=== PATIENT | male | born 1950 | race Two or more races ===

== ENCOUNTER 2019-06-25 17:01 | Inpatient (IN) | payer MEDICARE, MEDICAID ==
[~2019-06-25] VITALS: Ht 165.1 cm; Wt 67.4 kg
[2019-06-25 17:44] LABS: Basophils # (auto) 0 uL; Basophils % (auto) 0.4 % (0.0-2.0); Eosinophils # (auto) 0.1 uL; Eosinophils % (auto) 1.6 % (0.0-7.0); Hematocrit 44.4 % (41.0-53.0); Hemoglobin 15.2 g/dL (13.5-17.5); Lymphocytes # (auto) 1.8 uL; Lymphocytes % (auto) 29.9 % (10.0-50.0); Mean Corpuscular Hemoglobin 31.9 pg (28.0-32.0); Mean Corpuscular Hgb Conc. 34.3 g/dL (32.0-36.0); Monocytes # (auto) 0.4 uL; Monocytes % (auto) 6.7 % (0.0-12.0); Neutrophils # (auto) 3.7 uL; Neutrophils % (auto) 61.4 % (37.0-80.0); Nucleated Red Blood Cells % 0.1 %; Platelet Count (auto) 133 10^3/uL (140-450); Red Blood Cells 4.77 10^6/uL (4.5-5.90); Red Cell Distribution Width 12.4 % (11.8-14.3)
[2019-06-25 17:57] LABS: Albumin 3.7 g/dL (3.4-5.0); Anion Gap 9 (5-15); Blood Urea Nitrogen 17 mg/dL (7-18); Calcium 9.2 mg/dL (8.5-10.1); Carbon Dioxide 23 mmol/L (21-32); Chloride 103 mmol/L (98-107); Glucose 302 mg/dL (74-106); Potassium 3.9 mmol/L (3.5-5.1); Sodium 135 mmol/L (136-145)
[2019-06-25 18:02] LABS: Alanine Aminotransferase 54 U/L (16-61); Alkaline Phosphatase 60 U/L (45-117); Aspartate Aminotransferase 29 U/L (15-37); Bilirubin, Total 0.9 mg/dL (0.2-1.0); GFR African American 89 mL/min; GFR Non-African American 74 mL/min; Total Protein 7.8 g/dL (6.4-8.2)
[2019-06-26] VITALS (7 sets, daily range): BP systolic 97–180; BP diastolic 65–78
[2019-06-26] MEDS ORDERED: ONDANSETRON HCL 4 MG/2 ML VIAL IV ONE (01:45)
[2019-06-26] MEDS ORDERED: MORPHINE SULFATE 4 MG/ML SYR/VIAL IV ONE (01:45)
[2019-06-26 02:12] LABS: Urine Bacteria NONE SEEN /hpf (None Seen); Urine Blood Negative /uL (Negative); Urine Specific Gravity 1.032 (1.001-1.035); Urine WBC <1 /hpf (0 - 3)
[2019-06-26] MEDS ORDERED: LORazepam 0.5 MG TAB PO PRN (02:15)
[2019-06-26] MEDS ORDERED: DEXTROSE (50%) 50ML SYRG IV PRN (02:15)
[2019-06-26] MEDS ORDERED: MORPHINE SULFATE 4 MG/ML SYR/VIAL IV PRN (02:15)
[2019-06-26] MEDS ORDERED: DOCUSATE SOD 100 MG CAP PO PRN (02:15)
[2019-06-26] MEDS ORDERED: ONDANSETRON HCL 4 MG/2 ML VIAL IV PRN (02:15)
[2019-06-26] MEDS ORDERED: SODIUM CHLORIDE 0.9% 1,000 ML IV ONE (02:15)
[2019-06-26] MEDS ORDERED: METF-372 PO (03:57)
[2019-06-26] MEDS ORDERED: TAMS0.4C36 PO (03:57)
[2019-06-26] MEDS ORDERED: LISI40TA PO (03:57)
[2019-06-26] MEDS: ACCU-CHEK COMFORT CURVE STRIP VI SCH ×5 (04:00→20:00)
[2019-06-26] MEDS: InsuLIN REG 1unit/0.01ml Soln (100units/ml) SC SCH ×5 (04:00→20:00)
[2019-06-26] MEDS ORDERED: PNEUMOCOCCAL VACC POLYS 25 MCG/0.5 ML VIAL IM ONE (04:30)
[2019-06-26 07:53] LABS: Basophils # (auto) 0.1 uL; Basophils % (auto) 0.7 % (0.0-2.0); Eosinophils # (auto) 0 uL; Eosinophils % (auto) 0.2 % (0.0-7.0); Hematocrit 42.7 % (41.0-53.0); Hemoglobin 14.9 g/dL (13.5-17.5); Lymphocytes # (auto) 1.5 uL; Lymphocytes % (auto) 17.9 % (10.0-50.0); Mean Corpuscular Hemoglobin 32.5 pg (28.0-32.0); Mean Corpuscular Hgb Conc. 34.9 g/dL (32.0-36.0); Mean Corpuscular Volume 93.1 fL (80.0-100.0); Monocytes # (auto) 0.6 uL; Monocytes % (auto) 6.6 % (0.0-12.0); Neutrophils # (auto) 6.2 uL; Neutrophils % (auto) 74.6 % (37.0-80.0); Platelet Count (auto) 140 10^3/uL (140-450); Red Blood Cells 4.59 10^6/uL (4.5-5.90); Red Cell Distribution Width 12.3 % (11.8-14.3); White Blood Cell 8.3 10^3/uL (4.4-10.8)
[2019-06-26 08:12] LABS: Calcium 8.6 mg/dL (8.5-10.1); Potassium 3.9 mmol/L (3.5-5.1)
[2019-06-26 08:16] LABS: BUN/Creatinine Ratio 16.8
[2019-06-26] MEDS ORDERED: LISINOPRIL 20 MG TAB PO ONE (13:15)
[2019-06-26] MEDS: TAMSULOSIN HYDROCHLORIDE 0.4 MG CAP PO SCH (17:41)
[2019-06-26] MEDS: cloNIDine HCL 0.1 MG TAB PO PRN (17:41)
[2019-06-26] MEDS: ATORVASTATIN 20 MG TAB PO SCH (21:50)
[2019-06-27] MEDS: ACCU-CHEK COMFORT CURVE STRIP VI SCH ×6 (00:07→20:15)
[2019-06-27] MEDS: InsuLIN REG 1unit/0.01ml Soln (100units/ml) SC SCH ×6 (00:09→20:15)
[2019-06-27 05:00] VITALS: BP 155/80
[2019-06-27 09:00] VITALS: BP 163/70
[2019-06-27] MEDS: ACETAMINOPHEN 325 MG TAB PO PRN (09:24)
[2019-06-27] MEDS: ASPirin-EC 81 mg tab PO SCH (09:24)
[2019-06-27] MEDS: LISINOPRIL 20 MG TAB PO SCH (09:25)
[2019-06-27 13:00] VITALS: BP 140/61
[2019-06-27] MEDS: HYDROcodone-ACET 5/325MG TAB PO PRN (15:59)
[2019-06-27 17:00] VITALS: BP 175/72
[2019-06-27] MEDS: TAMSULOSIN HYDROCHLORIDE 0.4 MG CAP PO SCH (17:58)
[2019-06-27] MEDS: cloNIDine HCL 0.1 MG TAB PO PRN (17:58)
[2019-06-27 18:50] VITALS: BP 163/72
[2019-06-27] MEDS: ATORVASTATIN 20 MG TAB PO SCH (22:31)
[2019-06-28] VITALS (7 sets, daily range): BP systolic 135–182; BP diastolic 63–78
[2019-06-28] MEDS: ACCU-CHEK COMFORT CURVE STRIP VI SCH ×6 (00:23→20:13)
[2019-06-28] MEDS: InsuLIN REG 1unit/0.01ml Soln (100units/ml) SC SCH ×6 (00:23→20:13)
[2019-06-28] MEDS: ACETAMINOPHEN 325 MG TAB PO PRN (00:37)
[2019-06-28] MEDS: ASPirin-EC 81 mg tab PO SCH (10:42)
[2019-06-28] MEDS: LISINOPRIL 20 MG TAB PO SCH (10:44)
[2019-06-28] MEDS: cloNIDine HCL 0.1 MG TAB PO PRN ×2 (15:53→21:41)
[2019-06-28] MEDS: HYDROcodone-ACET 5/325MG TAB PO PRN (15:54)
[2019-06-28] MEDS: TAMSULOSIN HYDROCHLORIDE 0.4 MG CAP PO SCH (18:48)
[2019-06-28] MEDS: ATORVASTATIN 20 MG TAB PO SCH (21:40)
[2019-06-29] MEDS: ACCU-CHEK COMFORT CURVE STRIP VI SCH ×4 (00:25→12:00)
[2019-06-29] MEDS: InsuLIN REG 1unit/0.01ml Soln (100units/ml) SC SCH ×4 (00:26→11:58)
[2019-06-29 05:00] VITALS: BP 155/72
[2019-06-29 09:00] VITALS: BP 155/73
[2019-06-29] MEDS: ASPirin-EC 81 mg tab PO SCH (10:13)
[2019-06-29] MEDS: LISINOPRIL 20 MG TAB PO SCH (10:14)
[2019-06-29] MEDS: HYDROcodone-ACET 5/325MG TAB PO PRN (11:57)
[2019-06-29] MEDS: cloNIDine HCL 0.1 MG TAB PO PRN (11:58)
[2019-06-29 12:56] VITALS: BP 182/73
[2019-06-29 13:00] VITALS: BP 189/79
== END 2019-06-29 14:15 | disposition home health service (06) | DRG 65 ==
LOC: ER 17:01 → TELE-WESTW 17:02
PROVIDERS: ADMIT Hospitalist; ATTEND Family Medicine
DX: I63.531 Cerebral infarction due to unspecified occlusion or stenosis of right posterior cerebral artery (principal); G81.94 Hemiplegia, unspecified affecting left nondominant side; E11.65 Type 2 diabetes mellitus with hyperglycemia; I10 Essential (primary) hypertension; F17.200 Nicotine dependence, unspecified, uncomplicated; E11.21 Type 2 diabetes mellitus with diabetic nephropathy; E78.00 Pure hypercholesterolemia, unspecified; N40.0 Benign prostatic hyperplasia without lower urinary tract symptoms; E11.40 Type 2 diabetes mellitus with diabetic neuropathy, unspecified; H53.462 Homonymous bilateral field defects, left side; G47.10 Hypersomnia, unspecified; Z90.49 Acquired absence of other specified parts of digestive tract; Z79.84 Long term (current) use of oral hypoglycemic drugs; Z79.899 Other long term (current) drug therapy; Z82.49 Family history of ischemic heart disease and other diseases of the circulatory system; Z83.3 Family history of diabetes mellitus; Z86.73 Personal history of transient ischemic attack (TIA), and cerebral infarction without residual deficits
CPT/HCPCS: 36415; 70450; 70551; 80048; 80053; 80061; 81001; 82962; 83036; 84484; 85025; 93005; 93306; 93886; 94660; 96361; 96374; 96375; 97110; 97163; 97530; G0378; J1815; J2405

== ENCOUNTER → 2023-06-04 | Outpatient (CLI) | payer OTHER, MEDICAID ==
[~2023-06-04] MED LIST: LISI40TA16 PO; METF-372 PO; TAMS0.4C36 PO
== END | disposition home or self-care (01) ==
LOC: XYW 08:23
PROVIDERS: ATTEND Internal Medicine
DX: I08.0 Rheumatic disorders of both mitral and aortic valves (principal); I11.0 Hypertensive heart disease with heart failure
CPT/HCPCS: 93306

== ENCOUNTER → 2023-08-24 | Outpatient (CLI) | payer OTHER, MEDICAID ==
[~2023-08-24] VITALS: Ht 162.6 cm; Wt 72.6 kg
[2023-08-24] MEDS: ADENOSINE 61 MG in GIVE UN-DILUTED 0 ML IV STA (09:23)
== END | disposition home or self-care (01) ==
LOC: XYW 07:53
PROVIDERS: ATTEND Internal Medicine
DX: I13.0 Hypertensive heart and chronic kidney disease with heart failure and stage 1 through stage 4 chronic kidney disease, or unspecified chronic kidney disease (principal); E11.22 Type 2 diabetes mellitus with diabetic chronic kidney disease; I50.32 Chronic diastolic (congestive) heart failure; N18.2 Chronic kidney disease, stage 2 (mild); E78.5 Hyperlipidemia, unspecified; Z86.73 Personal history of transient ischemic attack (TIA), and cerebral infarction without residual deficits
CPT/HCPCS: 78452; 93017; A9500; J0153

== ENCOUNTER 2025-02-09 11:11 | Inpatient (IN) | payer MEDICARE, MEDICAID ==
[~2025-02-09] VITALS: Ht 154.9 cm; Wt 78.0 kg
[~2025-02-09 11:11] MED LIST changes: -TAMS0.4C36 PO; +TAMS0.4C39 PO
--- NOTE | 2025-02-09 12:20 | ED.PDOC ---
HPI Comments 74 y/o M, with PMHx of CAD and HTN presents to the ED for CC of chest pain. Patient states, he has been experiencing left sided chest pain that radiates to his left arm x1day. Patient has prior, left-deficit d/t past CVA; endorses pain to worsen with extension of left arm. patient denies palpations, shortness of breath, nausea, vomiting, headache, or dizziness. No other symptoms or modifying factors are present at this time. Chief Complaint: Chest Pain Time Seen by MD: 12:30 Reviewed Notes: Nurses Notes, Medications, Allergies Allergies: Coded Allergies: NO KNOWN ALLERGIES (Unverified , 06/25/19) Home Meds Reported Medications Metformin Hydrochloride (Metformin Hcl) 1,000 Mg Tab, 1000 MG PO BID, TAB 06/26/19 Lisinopril (Lisinopril) 40 Mg Tab, 40 MG PO DAILY, TAB 06/26/19 Tamsulosin Hcl (Tamsulosin Hcl) 0.4 Mg Cap, 0.4 MG PO HS, CAP 06/26/19 Information Source: Patient Mode of Arrival: Wheelchair Severity: Moderate Timing: Days Duration: Since onset Prehospital treatment: None Location: Chest (L) Radiation: Arm (L) Onset: At Rest Cardiac Risk Factors: HTN PE Risk Factors: None History of: None Modifying Factors: Nothing Associated Signs and Symptoms: None Past Medical History PAST MEDICAL HISTORY: CVA, HTN Surgical History: Denies all surgeries Family History Family History: Reviewed,noncontributory to illness Social History Smoker: Non-Smoker Alcohol: Denies ETOH Use Drugs: Denies Drug Use Lives In: Home Constitutional: denies: chills, diaphoresis, fatigue, fever, malaise, sweats, weakness, others EENTM: denies: blurred vision, double vision, ear bleeding, ear discharge, ear drainage, ear pain, ear ringing, eye pain, eye redness, hearing loss, mouth pain, mouth swelling, nasal discharge, nose bleeding, nose congestion, nose pain, photophobia, tearing, throat pain, throat swelling, voice changes, others Respiratory: denies: cough, hemoptysis, orthopnea, SOB at rest, shortness of breath, SOB with excertion, stridor, wheezing, others Cardiovascular: reports: chest pain; denies: dizzy spells, diaphoresis, Dyspnea on exertion, edema, irregular heart beat, left arm pain, lightheadedness, palpitations, PND, syncope, others Gastrointestinal: denies: abdomen distended, abdominal pain, blood streaked bowels, constipated, diarrhea, dysphagia, difficulty swallowing, hematemesis, melena, nausea, poor appetite, poor fluid intake, rectal bleeding, rectal pain, vomiting, others Genitourinary: denies: burning, dysuria, flank pain, frequency, hematuria, incontinence, penile discharge, penile sore, pain, testicle pain, testicle swelling, urgency, others Neurological: denies: dizziness, fainting, headache, left sided numbness, left sided weakness, numbness, paresthesia, pre-existing deficit, right sided numb ness, right sided weakness, seizure, speech problems, tingling, tremors, weakness, others Musculoskeletal: denies: back pain, gout, joint pain, joint swelling, muscle pain, muscle stiffness, neck pain, others Integumetry: denies: bruises, change in color, change in hair/nails, dryness, laceration, lesions, lumps, rash, wounds, others Allergic/Immunocompromised: denies: Difficulty Healing, Frequent Infections, Hives, Itching, others Hematologic/Lymphatic: denies: anemia, blood clots, easy bleeding, easy bruising, swollen glands, others Endocrine: denies: excessive hunger, excessive sweating, excessive thirst, excessive urination, flushing, intolerance to cold, intolerance to heat, unexplained weight gain, unexplained weight loss, others Psychiatric: denies: anxiety, bipolar disorder, depression, hopeless, panic disorder, schizophrenia, sleepless, suicidal, others All Other Systems: Reviewed and Negative Physical Exam General Appearance: No Apparent Distress, Normal HEENT: Normal ENT Inspection, Pharynx Normal, TMs Normal Neck: Full Range of Motion, Non-Tender, Normal, Normal Inspection Respiratory: Chest Non-Tender, Lungs Clear, No Accessory Muscle Use, No Respiratory Distress, Normal Breath Sounds Cardiovascular: No Edema, No JVD, No Murmur, No Gallop, Normal Peripheral Pulses, Regular Rate/Rhythm Breast Exam: Deferred Gastrointestinal: No Organomegaly, Non Tender, No Pulsatile Mass, Normal Bowel Sounds, Soft Genitalia: Deferred Pelvic: Deferred Rectal: Deferred Extremities: No calf tenderness, Normal capillary refill, Normal inspection, Normal range of motion, Non-tender, No pedal edema Musculoskeletal : Location: Left Extremity Location: Arm Apperance: Other (contracture) Neurologic: Alert, dock pumper II-XII nml as Tested, No Motor Deficits, Normal Affect, Normal Mood, No Sensory Deficits Cerebellar Function: Normal Reflexes: Normal Skin: Dry, Normal Color, Warm Lymphatic: No Adenopathy Was a procedure done? Was a procedure done?: No CP Differential Dx Differential Diagnosis: Angina, Anxiety / Panic Attack Differential Diagnosis: HTN Essential, HTN Accelerated Differential Diagnosis: Chest Wall Pain, Costochondritis, Esophageal reflux/spasm, Gastritis X-Ray, Labs, Meds, VS Vital Signs Date Time Temp Pulse Resp B/P (MAP) Pulse Ox O2 Delivery O2 Flow Rate FiO2 02/09/25 12:35 78 02/09/25 11:20 86 02/09/25 11:12 98.2 87 18 140/62 95 98.2 Lab Test 02/09/25 15:13 02/09/25 13:07 02/09/25 11:29 Range/Units Troponin I High Sensitivity Pending 11 12 </=54 ng/L White Blood Count 5.2 4.4-10.8 10^3/uL Red Blood Count 4.64 4.5-5.90 10^6/uL Hemoglobin 15.1 13.5-17.5 g/dL Hematocrit 44.1 41.0-53.0 % Mean Corpuscular Volume 94.9 80.0-100.0 fL Mean Corpuscular Hemoglobin 32.4 H 28.0-32.0 pg Mean Corpuscular Hemoglobin Concent 34.1 32.0-36.0 g/dL Red Cell Distribution Width 13.1 11.8-14.3 % Platelet Count 118 L 140-450 10^3/uL Mean Platelet Volume 10.0 6.9-10.8 fL Neutrophils (%) (Auto) 64.0 37.0-80.0 % Lymphocytes (%) (Auto) 26.0 10.0-50.0 % Monocytes (%) (Auto) 8.1 0.0-12.0 % Eosinophils (%) (Auto) 1.4 0.0-7.0 % Basophils (%) (Auto) 0.5 0.0-2.0 % Neutrophils # (Auto) 3.3 1.6-8.6 10 ^3/uL Lymphocytes # (Auto) 1.4 0.4-5.4 10 ^3/uL Monocytes # (Auto) 0.4 0-1.3 10 ^3/uL Eosinophils # (Auto) 0.1 0-0.8 10 ^3/uL Basophils # (Auto) 0 0-0.2 10 ^3/uL Nucleated Red Blood Cells 0.1 % Sodium Level 144 136-145 mmol/L Potassium Level 4.1 3.5-5.1 mmol/L Chloride Level 105 98-107 mmol/L Carbon Dioxide Level 27 20-31 mmol/L Anion Gap 12 5-15 Blood Urea Nitrogen 26 H 9-23 mg/dL Creatinine 1.49 H 0.700-1.30 mg/dL Glomerular Filtration Rate Calc 49 >90 mL/min BUN/Creatinine Ratio 17.4 10.0-20.0 Serum Glucose 146 H 74-106 mg/dL Calcium Level 9.6 8.7-10.4 mg/dL [place] [id number] Ph: [phone] DIAGNOSTIC IMAGING Diagnostic Imaging Report : [id number] Signed PATIENT: ANGELA CARBAJAL ACCT: [id number] UNIT: [id number] : 1950 LOC: ER ROOM / BED: / AGE / SEX: 74 / M ADM STATUS: REG ER SERVICE 1238 ORDERING PHYSICIAN: IMAN FOTNAINE MD PROCEDURE(s): CXRP - CHEST PORTABLE REASON: sob ORDER NUMBER(s): [id number], ACCESSION NUMBER(s): [id number] CHEST RADIOGRAPH Indication: sob Technique: Single frontal view of the chest was obtained Comparison: None FINDINGS: Lines and Tubes: None Lungs: Prominent bibasilar bronchovascular markings. Pleura: No effusion. No pneumothorax. Cardiomediastinal contours: Unremarkable Bones: No acute osseous abnormality. IMPRESSION: 1. Prominent bibasilar bronchovascular markings. 2. Findings may represent infiltrates areas of atelectasis chronic disease ATED BY: CARLTON PARMAR Jr. DO DICTATED DATE/TIME: 02/09/25 1301 SIGNED BY: CARLTON PARMAR Jr., DO SIGNED DATE/TIME: 02/09/25 1301 CC: Time of 1ST Reevaluation: 13:00 Reevaluation 1ST: Unchanged Patient Education/Counseling: Diagnosis, Treatment Family Education/Counseling: No Family Present SEPSIS Sepsis Screen Date sepsis recognized/suspect: Feb 09, 2025 Time Sepsis recognized/suspect: 1114 Recent Procedure: No On Antibiotic Therapy: No Respiratory Rate >20: No Heart Rate >90: No Temp<36 C (96.8 F) or >38.3 C: No SBP <90 or MAP <65 mmHG: No New Acute Mental Status Change: No Is the patient on CPAP, BIPAP,: No Physician Orders Electrocardigram (02/09/25 11:15) Troponin-I Hs (02/09/25 14:15) Electrocardigram (02/09/25 12:15) Electrocardigram (02/09/25 14:15) Chest Portable (02/09/25 12:38) Lactic Acid W/ Reflex Order (02/09/25 15:43) Blood Culture (02/09/25 15:43) NS (02/09/25 15:45) Cefepime 2gm Extended Infusion (02/09/25 15:45) Vancomycin (02/09/25 15:45) Vital Signs Date Time Temp Pulse Resp B/P (MAP) Pulse Ox O2 Delivery O2 Flow Rate FiO2 02/09/25 12:35 78 02/09/25 11:20 86 02/09/25 11:12 98.2 87 18 140/62 95 98.2 Laboratory Tests Test 02/09/25 11:29 White Blood Count 5.2 10^3/uL (4.4-10.8) Departure 1 Departure Time of Disposition: 15:44 (Patient is not septicPatient presented with chest pain that was concerning for possible STEMI, ACS, PE, Pneumonia, Muscle Strain, COPD, Dissection. Data: 1. I ordered and reviewed the result of at least 3 labs including a CBC, BMP, and Troponin. 2. I independently interpreted the following tests: EKG which shows sinus rhythm a and Chest X-ray which shows possible pneumonia _.Risk:This patient has a high risk of morbidity due to further diagnostic testing or treatment and may suffer from an acute cardiac or res piratory disorder. Workup reveals pneumonia and patient should be admitted for further workup and possible expert consultation. ) Impression: Primary Impression: Pneumonia Additional Impression: Acute chest pain Disposition: 09 ADMITTED INPATIENT Admit to: Med Surg Condition: Serious Critical Care Note Critical Care Time?: Yes Critical care comment: Acute Chest Pain Authorized and Performed by: Iman Fontaine MD Total critical care time: Approximately 38 minutes Due to a high probability of clinically significant, life threatening deterioration, the patient required my highest level of preparedness to intervene emergently and I personally spent this critical care time directly and personally managing the patient. This critical care time included obtaining a history; examining the patient; pulse oximetry; ordering and review of studies; arranging urgent treatment with development of a management plan; evaluation of patient's response to treatment; frequent reassessment; and, discussions with other providers. This critical care time was performed to assess and manage the high probability of imminent, life-threatening deterioration that could result in multi-organ failure. It was exclusive of separately billable procedures and treating other patients and teaching time. Please see my other sections and the rest of the note for further information on patient assessment and treatment. Stability Stability form required: No Heart Score Heart Score: Heart Score Response (Comments) Value History N/A 0 EKG N/A 0 Age N/A 0 Risk Factors N/A 0 Troponin N/A 0 Total 0 I personally scribed for IMAN FONTAINE MD ([email or web address]) on 02/09/25 at 12:20. Electronically submitted by Hina Lara ([email or web address]). I personally scribed for IMAN FONTAINE MD ([email or web address]) on 02/09/25 at 12:54. Electronically submitted by Hina Lara ([email or web address]). I personally scribed for IMAN FONTAINE MD ([email or web address]) on 02/09/25 at 13:44. Electronically submitted by Hina Lara ([email or web address]). IMAN FONTAINE MD Feb 09, 2025 12:20
[2025-02-09 12:57] LABS: Hematocrit 44.1 % (41.0-53.0); Hemoglobin 15.1 g/dL (13.5-17.5); Mean Corpuscular Hemoglobin 32.4 pg (28.0-32.0); Mean Corpuscular Volume 94.9 fL (80.0-100.0); Nucleated Red Blood Cells % 0.1 %
--- NOTE | 2025-02-09 13:04 | DVH ---
CHEST RADIOGRAPH Indication: sob Technique: Single frontal view of the chest was obtained Comparison: None FINDINGS: Lines and Tubes: None Lungs: Prominent bibasilar bronchovascular markings. Pleura: No effusion. No pneumothorax. Cardiomediastinal contours: Unremarkable Bones: No acute osseous abnormality. IMPRESSION: 1. Prominent bibasilar bronchovascular markings. 2. Findings may represent infiltrates areas of atelectasis chronic disease
[2025-02-09 13:54] LABS: Chloride 105 mmol/L (98-107); Potassium 4.1 mmol/L (3.5-5.1); Sodium 144 mmol/L (136-145)
[2025-02-09 13:55] LABS: Anion Gap 12 (5-15); Carbon Dioxide 27 mmol/L (20-31)
[2025-02-09 13:56] LABS: Calcium 9.6 mg/dL (8.7-10.4)
[2025-02-09 14:00] LABS: BUN/Creatinine Ratio 17.4 (10.0-20.0)
[2025-02-09 14:01] LABS: Blood Urea Nitrogen 26 mg/dL (9-23); Glucose 146 mg/dL (74-106)
[2025-02-09] MEDS ORDERED: DEXTROSE (50%) 50ML SYRG IV PRN (16:45)
[2025-02-09] MEDS ORDERED: ALBUTEROL SULF 2.5 MG/0.5ML(0.5%) NEB SOLN NEB PRN (16:45)
[2025-02-09] MEDS ORDERED: ACETAMINOPHEN 325 MG TAB PO PRN (16:45)
[2025-02-09] MEDS ORDERED: NITROGLYCERIN 0.4 MG SL TAB SL PRN (16:45)
[2025-02-09] MEDS ORDERED: ONDANSETRON HCL 4 MG/2 ML VIAL IV PRN (16:45)
[2025-02-09] MEDS: CEFEPIME 2GM/50ML NS 50 ML IV ONE (16:46)
[2025-02-09] MEDS: SODIUM CHLORIDE 0.9% 1,000 ML IV ONE (16:46)
[2025-02-09] MEDS: VANCOMYCIN 1GM/250ML KIT 250 ML IV ONE (16:46)
[2025-02-09 16:57] VITALS: BP 134/56; PULSE 73; RESP 18; TEMP 98; O2SAT 96
[2025-02-09] MEDS ORDERED: MORPHINE SULFATE 4 MG/ML SYR/VIAL IV PRN (17:45)
--- NOTE | 2025-02-09 18:06 | ECG ---
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
--- NOTE | 2025-02-09 18:07 | ECG ---
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
--- NOTE | 2025-02-09 18:50 | DVHHP2 ---
History of Present Illness Reason for Visit: Chest pain History of Present Illness 74-year-old male presents for evaluation of chest pain. Patient endorses a one day history of left-sided pressure-like chest pain with associated shortness for breath. He states the pain is nonradiating. Denies nausea or vomiting. No fever or chills. No cough Past Medical History Diabetes mellitus, hypertension, CVA Past Surgical History Denies Family History Noncontributory Smoke: No ALCOHOL: none Drugs: None Lives: with Family Review of Systems Review of Systems Review of systems are currently negative otherwise addressed in HPI. Allergies: Coded Allergies: NO KNOWN ALLERGIES (Unverified , 06/25/19) Medications Current Medications Medications Dose Ordered Sig/Elizabeth Route Start Time Stop Time Status Last Admin Dose Admin Azithromycin 250 ml @ 125 mls/hr DAILY IV 02/10/25 10:00 Albuterol 2.5 mg Q6HPRN PRN NEB 02/09/25 16:45 Lisinopril 40 mg DAILY PO 02/10/25 10:00 Atorvastatin Calcium 20 mg HS PO 02/09/25 22:00 Empaglifozin 25 mg DAILY PO 02/10/25 10:00 Tamsulosin HCl 0.4 mg QPM PO 02/09/25 18:00 Furosemide 20 mg DAILY PO 02/10/25 10:00 Gabapentin 300 mg DAILY PO 02/10/25 10:00 Diagnostic Test (Pha) 1 strip ACHS 02/09/25 17:00 Insulin Human Regular ACHS SC 02/09/25 17:00 Dextrose 50 ml UD PRN IV 02/09/25 16:45 Ondansetron HCl 4 mg Q4HP PRN IV 02/09/25 16:45 Acetaminophen 650 mg Q6HP PRN PO 02/09/25 16:45 Nitroglycerin 0.4 mg Q5MINP PRN SL 02/09/25 16:45 Morphine Sulfate 2 mg Q30M PRN IV 02/09/25 17:45 Exam Vital Signs Vital Signs Date Time Temp Pulse Resp B/P (MAP) Pulse Ox O2 Delivery O2 Flow Rate FiO2 02/09/25 16:57 98.0 73 18 134/56 96 0.0 21 98.0 Exam Gen: 74-year-old male in mild distress Skin: Warm, dry, normal color and texture, no rash. HEENT: Normocephalic atraumatic, mucous membranes moist and pink. Neck: Cervical and supraclavicular nodes normal without enlargement, trachea is midline, thyroid gland is normal without masses. Pulmonary: Clear to auscultation and percussion bilaterally. Cardiac: Regular rate and rhythm. No murmur Abdomen: Soft, nontender, nondistended, bowel sounds present all 4 quadrants, no guarding, no rigidity, no organomegaly. Extremities: No cyanosis, clubbing, no edema Neuro: Cranial nerves II through XII grossly intact, normal affect and speech, left-sided deficits from previous CVA Labs/Xrays ORDERING PHYSICIAN: IMAN ROMAN MD PROCEDURE(s): CXRP - CHEST PORTABLE REASON: sob ORDER NUMBER(s): [id number], ACCESSION NUMBER(s): [id number] CHEST RADIOGRAPH Indication: sob Technique: Single frontal view of the chest was obtained Comparison: None FINDINGS: Lines and Tubes: None Lungs: Prominent bibasilar bronchovascular markings. Pleura: No effusion. No pneumothorax. Cardiomediastinal contours: Unremarkable Bones: No acute osseous abnormality. IMPRESSION: 1. Prominent bibasilar bronchovascular markings. 2. Findings may represent infiltrates areas of atelectasis chronic disease ATED BY: CARLTON SHIN Jr., DO DICTATED DATE/TIME: 02/09/25 1301 Labs Test 02/09/25 16:14 02/09/25 15:13 02/09/25 11:29 Range/Units Lactic Acid Level 0.7 0.4-2.0 mmol/L Troponin I High Sensitivity 11 </=54 ng/L White Blood Count 5.2 4.4-10.8 10^3/uL Red Blood Count 4.64 4.5-5.90 10^6/uL Hemoglobin 15.1 13.5-17.5 g/dL Hematocrit 44.1 41.0-53.0 % Mean Corpuscular Volume 94.9 80.0-100.0 fL Mean Corpuscular Hemoglobin 32.4 H 28.0-32.0 pg Mean Corpuscular Hemoglobin Concent 34.1 32.0-36.0 g/dL Red Cell Distribution Width 13.1 11.8-14.3 % Platelet Count 118 L 140-450 10^3/uL Mean Platelet Volume 10.0 6.9-10.8 fL Neutrophils (%) (Auto) 64.0 37.0-80.0 % Lymphocytes (%) (Auto) 26.0 10.0-50.0 % Monocytes (%) (Auto) 8.1 0.0-12.0 % Eosinophils (%) (Auto) 1.4 0.0-7.0 % Basophils (%) (Auto) 0.5 0.0-2.0 % Neutrophils # (Auto) 3.3 1.6-8.6 10 ^3/uL Lymphocytes # (Auto) 1.4 0.4-5.4 10 ^3/uL Monocytes # (Auto) 0.4 0-1.3 10 ^3/uL Eosinophils # (Auto) 0.1 0-0.8 10 ^3/uL Basophils # (Auto) 0 0-0.2 10 ^3/uL Nucleated Red Blood Cells 0.1 % Sodium Level 144 136-145 mmol/L Potassium Level 4.1 3.5-5.1 mmol/L Chloride Level 105 98-107 mmol/L Carbon Dioxide Level 27 20-31 mmol/L Anion Gap 12 5-15 Blood Urea Nitrogen 26 H 9-23 mg/dL Creatinine 1.49 H 0.700-1.30 mg/dL Glomerular Filtration Rate Calc 49 >90 mL/min BUN/Creatinine Ratio 17.4 10.0-20.0 Serum Glucose 146 H 74-106 mg/dL Calcium Level 9.6 8.7-10.4 mg/dL SEPSIS Sepsis Screen Date sepsis recognized/suspect: Feb 09, 2025 Time Sepsis recognized/suspect: 1114 Recent Procedure: No On Antibiotic Therapy: No Respiratory Rate >20: No Heart Rate >90: No Temp<36 C (96.8 F) or >38.3 C: No SBP <90 or MAP <65 mmHG: No New Acute Mental Status Change: No Is the patient on CPAP, BIPAP,: No Physician Orders Electrocardigram (02/09/25 14:15) Chest Portable (02/09/25 12:38) Blood Culture (02/09/25 15:43) Cefepime 2gm/50ml Ns (Maxipime 2gm/50ml) (02/09/25 15:45) Azithromycin 500mg/ 250ml (Zithromax 50 (02/10/25 10:00) Albuterol Medneb (Ventolin Medneb) (02/09/25 16:45) Lisinopril Tablet (Zestril Tablet) (02/10/25 10:00) Atorvastatin (Lipitor) (02/09/25 22:00) Empagliflozin (Jardiance) (02/10/25 10:00) Tamsulosin Hydrochloride (Flomax) (02/09/25 18:00) Furosemide Tablet (Lasix Tablet) (02/10/25 10:00) Gabapentin Capsule (Neurontin Capsule) (02/10/25 10:00) Basic Metabolic Panel (02/10/25 04:00) Glucose Blood (Accu-Chek Comfort Curve T (02/09/25 17:00) Insulin R (Human) (Insulin R) (02/09/25 17:00) Dextrose 50% Syringe (02/09/25 16:45) Admit (02/09/25 16:42) Ondansetron Hcl (Zofran) (02/09/25 16:45) Complete Blood Count (02/10/25 04:00) Cardiac Diet-2gna,Lofat,Lochol (02/09/25 Dinner) Echo 2d Mode Cardiac Dop (02/09/25 16:42) Condition: Fair (02/09/25 16:42) Acetaminophen Tablet (Tylenol Tablet) (02/09/25 16:45) Bedrest With Bathroom Privileg (02/09/25 16:42) Nitroglycerin Sublingual (Ntrostat Subli (02/09/25 16:45) Stat Ekg For Chest Pain (02/09/25 16:42) Notify Md Of Changes From Base (02/09/25 16:42) 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 (02/09/25 16:42) Emergency Dysrhythmia Protocol (02/09/25 16:42) Rhythm Strips Once Every Shift (02/09/25 16:42) Oxygen By Nasal Cannula (02/09/25 16:42) Morphine Sulfate Injection (02/09/25 17:45) Vital Signs Date Time Temp Pulse Resp B/P (MAP) Pulse Ox O2 Delivery O2 Flow Rate FiO2 02/09/25 16:57 98.0 73 18 134/56 96 0.0 21 98.0 02/09/25 16:29 98.0 73 18 134/56 (82) 96 98.0 02/09/25 12:35 78 02/09/25 11:20 86 02/09/25 11:12 98.2 87 18 140/62 95 98.2 Laboratory Tests Test 02/09/25 11:29 02/09/25 16:14 White Blood Count 5.2 10^3/uL (4.4-10.8) Lactic Acid Level 0.7 mmol/L (0.4-2.0) Medications Medications Dose Ordered Sig/Elizabeth Route Start Time Stop Time Status Last Admin Dose Admin Cefepime HCl 50 ml @ 12.5 mls/hr ONCE ONCE IV 02/09/25 15:45 02/09/25 19:44 02/09/25 16:46 12.5 MLS/HR Sodium Chloride 1,000 ml @ 1,000 mls/hr Q1H ONCE IV 02/09/25 15:45 02/09/25 16:44 DC 02/09/25 16:46 1,000 MLS/HR Vancomycin HCl 250 ml @ 250 mls/hr ONCE ONCE IV 02/09/25 15:45 02/09/25 16:44 DC 02/09/25 16:46 250 MLS/HR Assessment/Plan Assessment/Plan Assessment Chest pain Questionable pneumonia Diabetes mellitus Chronic kidney disease CVA with left-sided deficits Plan Admit the patient to telemetry to the hospitalist Echocardiogram pending Azithromycin Med nebs Resume home medications Continue treatment per orders. Plan discussed with: Patient My Orders Orders - TRAMAINE ROWLEY AGACNP Procedure Category Date Status Time Azithromycin 500mg/ PHA 02/10/25 In Process 250ml (Zithromax 50 10:00 Albuterol Medneb PHA 02/09/25 In Process (Ventolin Medneb) 16:45 Lisinopril Tablet PHA 02/10/25 In Process (Zestril Tablet) 10:00 Atorvastatin (Lipitor) PHA 02/09/25 In Process 22:00 Empagliflozin PHA 02/10/25 In Process (Jardiance) 10:00 Tamsulosin PHA 02/09/25 In Process Hydrochloride (Flomax) 18:00 Furosemide Tablet PHA 02/10/25 In Process (Lasix Tablet) 10:00 Gabapentin Capsule PHA 02/10/25 In Process (Neurontin Capsule) 10:00 Basic Metabolic Panel LAB 02/10/25 Verified 04:00 Glucose Blood PHA 02/09/25 In Process (Accu-Chek Comfort 17:00 Insulin R (Human) PHA 02/09/25 In Process (Insulin R) 17:00 Dextrose 50% Syringe PHA 02/09/25 In Process 16:45 Admit ADMIT 02/09/25 Transmitted 16:42 Ondansetron Hcl PHA 02/09/25 In Process (Zofran) 16:45 Complete Blood Count LAB 02/10/25 Verified 04:00 Cardiac DIET 02/09/25 Transmitted Diet-2gna,Lofat,Lochol Dinner Echo 2d Mode Cardiac US 02/09/25 Logged DOP 16:42 Condition: Fair [facility] [place] 02/09/25 In Process 16:42 Acetaminophen Tablet [facility] 02/09/25 In Process (Tylenol Tablet) 16:45 Bedrest With Bathroom [facility] [place] 02/09/25 In Process Privileg 16:42 Nitroglycerin [facility] 02/09/25 In Process Sublingual (Ntrostat 16:45 Stat Ekg For Chest [facility] [place] 02/09/25 In Process Pain 16:42 Notify Md Of Changes [facility] [place] 02/09/25 In Process From Base 16:42 Drive [employer]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
[2025-02-09 19:59] VITALS: PULSE 74; RESP 18; O2SAT 95
[2025-02-09 20:00] VITALS: PULSE 74; PULSE 76; RESP 18; O2SAT 95
[2025-02-09 20:45] VITALS: BP 157/80; PULSE 74; RESP 18; TEMP 98; O2SAT 95
[2025-02-09 21:00] VITALS: BP 151/80; PULSE 75; RESP 18; TEMP 97.5; O2SAT 94
[2025-02-09] MEDS ORDERED: GABA-1250 PO (21:29)
[2025-02-09] MEDS ORDERED: GLIM2TAB33 PO (21:29)
[2025-02-09] MEDS ORDERED: ATOR20TA PO (21:29)
[2025-02-09] MEDS ORDERED: FURO20TA3 PO (21:29)
[2025-02-09] MEDS ORDERED: ASPI1TAB20 PO (21:29)
[2025-02-09] MEDS ORDERED: EMPA1TAB3 PO (21:29)
[2025-02-09] MEDS ORDERED: FINA5TAB4 PO (21:29)
[2025-02-09] MEDS ORDERED: LINA5TAB PO (21:29)
[2025-02-09] MEDS ORDERED: CHOL20007 PO (21:29)
[2025-02-09] MEDS ORDERED: AMLO1TAB22 PO (21:29)
[2025-02-09] MEDS: ATORVASTATIN 20 MG TAB PO SCH (22:49)
[2025-02-09] MEDS: TAMSULOSIN HYDROCHLORIDE 0.4 MG CAP PO SCH (22:49)
[2025-02-09 22:50] VITALS: O2SAT 95
[2025-02-09] MEDS: ACCU-CHEK COMFORT CURVE STRIP VI SCH (22:50)
[2025-02-09] MEDS: InsuLIN REG 1unit/0.01ml Soln (100units/ml) SC SCH (22:58)
[2025-02-10] VITALS (10 sets, daily range): BP systolic 121–152; BP diastolic 59–80; PULSE 60–80; RESP 16–18; TEMP 97.6–98; O2SAT 94–99
[2025-02-10 07:00] LABS: Hematocrit 42.9 % (41.0-53.0); Hemoglobin 14.7 g/dL (13.5-17.5); Mean Corpuscular Hemoglobin 32.5 pg (28.0-32.0); Mean Corpuscular Volume 95.0 fL (80.0-100.0); Nucleated Red Blood Cells % 0.1 %
[2025-02-10 07:04] LABS: Potassium 4.1 mmol/L (3.5-5.1)
[2025-02-10 07:05] LABS: Anion Gap 9 (5-15); Carbon Dioxide 28 mmol/L (20-31)
[2025-02-10 07:06] LABS: Calcium 9.0 mg/dL (8.7-10.4)
[2025-02-10 07:11] LABS: BUN/Creatinine Ratio 14.7 (10.0-20.0); Blood Urea Nitrogen 19 mg/dL (9-23)
[2025-02-10 07:17] LABS: Chloride 109 mmol/L (98-107); Glucose 107 mg/dL (74-106); Sodium 146 mmol/L (136-145)
[2025-02-10] MEDS: AZITHROMYCIN 500MG/ 250ML 250 ML IV SCH (10:11)
[2025-02-10] MEDS: FUROSEMIDE 20 MG TAB PO SCH (10:13)
[2025-02-10] MEDS: GABAPENTIN 300 MG CAP PO SCH (10:14)
[2025-02-10] MEDS: LISINOPRIL 20 MG TAB PO SCH (10:14)
[2025-02-10] MEDS: EMPAGLIFLOZIN 10 MG TAB PO SCH (10:15)
--- NOTE | 2025-02-10 15:26 | DVHINCON2 ---
Date Seen: Feb 10, 2025 Referring Physician MD Phoebe Reason for Consultation Chest pain History of Present Illness This is a Taiwanese-speaking 74-year-old male patient who presents to emergency room with chief complaint of chest pain. The patient reports that the chest pain began approximately four days prior to emergency room arrival. He reports that symptoms presented while he was doing physical therapy. He states that he began experiencing left-sided chest pain. He describes the pain as unprovoked, intermittent, pressure-like in nature, left-sided with some radiation down his left arm. He denies any associated symptoms. He also denies any aggravating or alleviating factors. Initial twelve lead electrocardiogram seen in patient's hard chart reveals normal sinus rhythm with first-degree conduction delay without any significant ST segment changes. Initial troponin level of 12ng/L. Significant past medical history includes hypertension, dyslipidemia, CVA with left-sided weakness, type 2 diabetes mellitus, and benign prostatic hyperplasia. The patient denies any previous cardiac workup Past Medical History Past medical history reviewed. No other significant than mentioned above. Past Surgical History Appendectomy Hernia repair Cholecystectomy Family History: Alcoholism G8 FATHER Arthritis G8 MOTHER FH: CAD (coronary artery disease) G8 FATHER FH: CHF (congestive heart failure) G8 FATHER FH: alcoholism FH: obesity G8 FATHER FH: smoking G8 FATHER Glaucoma Hypertension G8 FATHER Family History Family history reviewed. Social History Patient has a 80 pack-year history, quit smoking approximately 15 years ago Denies illicit drug use Denies alcohol use Allergies: Coded Allergies: NO KNOWN ALLERGIES (Unverified , 06/25/19) Home Meds Reported Medications Linagliptin Base (TRADJENTA) 5 Mg Tab, 1 TAB PO DAILY, #30 TAB 5 Refills 02/09/25 Empagliflozin (Jardiance) 25 Mg Tab, 25 MG PO, TAB 02/09/25 Furosemide (Furosemide) 20 Mg Tab, 1 TAB PO DAILY, #90 TAB 1 Refill 02/09/25 Finasteride (Finasteride) 5 Mg Tab, 5 MG PO, TAB 02/09/25 Glimepiride (Glimepiride) 2 Mg Tab, 2 MG PO, TAB 02/09/25 Aspirin (Aspir-81) 81 Mg Tab, 81 TAB PO DAILY, #90 TAB 1 Refill 02/09/25 Cholecalciferol (VITAMIN D3) 2,000 Unit Tab, 1 TAB PO DAILY, #90 TAB 3 Refills 02/09/25 Atorvastatin Calcium (Lipitor) 20 Mg Tab, 1 TAB PO DAILY, #90 TAB 1 Refill 02/09/25 Gabapentin (Gabapentin) 300 Mg Cap, 300 MG PO, CAP 02/09/25 Amlodipine Besylate (Amlodipine Besylate) 5 Mg Tab, 1 TAB PO DAILY, #30 TAB 5 Refills 02/09/25 Lisinopril (Lisinopril) 40 Mg Tab, 40 MG PO DAILY, TAB 06/26/19 Tamsulosin Hcl (Tamsulosin Hcl) 0.4 Mg Cap, 0.4 MG PO HS, CAP 06/26/19 Discontinued Reported Medications Metformin Hydrochloride (Metformin Hcl) 1,000 Mg Tab, 1000 MG PO BID, TAB 06/26/19 Home Meds Home medications reviewed. Current Medications Current Medications Medications (Trade) Dose Ordered Sig/Elizabeth Route PRN Reason Start Time Stop Time Status Last Admin Azithromycin 250 ml @ 125 mls/hr DAILY IV 02/10/25 10:00 02/10/25 10:11 Albuterol (Ventolin Medneb) 2.5 mg Q6HPRN PRN NEB SHORTNESS OF BREATH 02/09/25 16:45 Lisinopril (Zestril Tablet) 40 mg DAILY PO 02/10/25 10:00 02/10/25 10:14 Atorvastatin Calcium (Lipitor) 20 mg HS PO 02/09/25 22:00 02/09/25 22:49 Empaglifozin (Jardiance) 25 mg DAILY PO 02/10/25 10:00 02/10/25 10:15 Tamsulosin HCl (Flomax) 0.4 mg QPM PO 02/09/25 18:00 02/09/25 22:49 Furosemide (Lasix Tablet) 20 mg DAILY PO 02/10/25 10:00 02/10/25 10:13 Gabapentin (Neurontin Capsule) 300 mg DAILY PO 02/10/25 10:00 02/10/25 10:14 Diagnostic Test (Pha) (Accu-Chek Comfort Curve T) 1 strip ACHS 02/09/25 17:00 02/10/25 11:30 Insulin Human Regular (InsuLIN R) ACHS SC 02/09/25 17:00 02/09/25 22:58 Dextrose 50 ml UD PRN IV Blood Sugar LESS THAN 60 10/9/25 16:45 Ondansetron HCl (Zofran) 4 mg Q4HP PRN IV NAUSEA / VOMITING 02/09/25 16:45 Acetaminophen (Tylenol Tablet) 650 mg Q6HP PRN PO PAIN SCALE 1-3 OR TEMP>100.4 02/09/25 16:45 Nitroglycerin (Ntrostat Sublingual) 0.4 mg Q5MINP PRN SL FOR CHEST PAIN 02/09/25 16:45 Morphine Sulfate 2 mg Q30M PRN IV FOR CHEST PAIN 02/09/25 17:45 Review of Systems Constitutional: No symptom reported Ears, Nose, & Throat: No symptom reported Eyes: No symptom reported Neurological: No symptoms reported Pulmonary/Respiratory: No symptoms reported Cardiovascular: Chest pain Gastrointestinal: No symptom reported Genitourinary: No symptom reported Musculoskeletal: No symptom reported Skin: No symptom reported Psychiatric: No symptom reported Endocrine: No symptom reported Hematologic/Lymphatic: No symptom reported Vital Signs Vital Signs Date Time Temp Pulse Resp B/P (MAP) Pulse Ox O2 Delivery O2 Flow Rate FiO2 02/10/25 13:00 97.7 68 16 127/71 (89) 95 97.7 02/10/25 08:00 Room Air* 0 21 Physical Exam General Appearance: Cooperative. Well-developed. Well-nourished. No acute distress. Pulmonary/Respiratory: Clear, bilateral breaths sounds. Cardiovascular/Chest: Regular rate and rhythm. Peripheral Pulses: 2+ Radial (R). 2+ Radial (L). 2+ Pedal (R). 2+ Pedal (L) Abdominal Exam: Normal bowel sounds. Soft, non-tender. No hepatosplenomegaly. No masses. Ankle Exam: Negative ankle edema Lower extremities: Negative lower extremity edema Neuro/Mental Status: A/OX4, coherent. Thoughts/Psych: Normal thought pattern. Appropriate mood and affect. Good judgment and insight. Appearance: No acute distress. Skin Exam: Normal inspection. Normal color. Warm and dry. Labs/Diagnostic Data Labs Test 02/10/25 12:26 02/10/25 05:54 02/09/25 16:14 02/09/25 15:13 Range/Units POC Glucose 113 H 70-106 mg/dl White Blood Count 4.5 4.4-10.8 10^3/uL Red Blood Count 4.52 4.5-5.90 10^6/uL Hemoglobin 14.7 13.5-17.5 g/dL Hematocrit 42.9 41.0-53.0 % Mean Corpuscular Volume 95.0 80.0-100.0 fL Mean Corpuscular Hemoglobin 32.5 H 28.0-32.0 pg Mean Corpuscular Hemoglobin Concent 34.3 32.0-36.0 g/dL Red Cell Distribution Width 12.8 11.8-14.3 % Platelet Count 107 L 140-450 10^3/uL Mean Platelet Volume 9.5 6.9-10.8 fL Neutrophils (%) (Auto) 61.3 37.0-80.0 % Lymphocytes (%) (Auto) 25.3 10.0-50.0 % Monocytes (%) (Auto) 9.7 0.0-12.0 % Eosinophils (%) (Auto) 3.2 0.0-7.0 % Basophils (%) (Auto) 0.5 0.0-2.0 % Neutrophils # (Auto) 2.8 1.6-8.6 10 ^3/uL Lymphocytes # (Auto) 1.1 0.4-5.4 10 ^3/uL Monocytes # (Auto) 0.4 0-1.3 10 ^3/uL Eosinophils # (Auto) 0.1 0-0.8 10 ^3/uL Basophils # (Auto) 0 0-0.2 10 ^3/uL Nucleated Red Blood Cells 0.1 % Sodium Level 146 H 136-145 mmol/L Potassium Level 4.1 3.5-5.1 mmol/L Chloride Level 109 H 98-107 mmol/L Carbon Dioxide Level 28 20-31 mmol/L Anion Gap 9 5-15 Blood Urea Nitrogen 19 9-23 mg/dL Creatinine 1.29 0.700-1.30 mg/dL Glomerular Filtration Rate Calc 59 >90 mL/min BUN/Creatinine Ratio 14.7 10.0-20.0 Serum Glucose 107 H 74-106 mg/dL Calcium Level 9.0 8.7-10.4 mg/dL Lactic Acid Level 0.7 0.4-2.0 mmol/L Troponin I High Sensitivity 11 </=54 ng/L Assessment Chest pain, rule out coronary ischemia Rule out structural heart disease Hypertension Dyslipidemia History of CVA with left-sided residual weakness Type 2 diabetes mellitus Thrombocytopenia History of tobacco use Plan/Recommendation We will continue with the following plan/recommendations (Dr. Arellano): * Transthoracic echocardiogram to evaluate cardiac function * Chest pain protocol * HEART score: 4 points (moderate score) * Lipid-lowering agent * Consider antiplatelet therapy with improved platelet count * Blood pressure control * Nuclear stress test * Close cardiac surveillance Given patient's clinical presentation and comorbidities, the patient was offered a nuclear stress test. Patient unable to complete treadmill stress test given left-sided residual weakness from previous CVA. We will schedule the patient at soonest availability. Thank you for allowing us to care for this patient. Please call with any questions or concerns. Critical care time spent: 44 minutes This medical document was created using an electronic medical record system with voice recognition software and computerized dictation system. Although this document has been carefully reviewed, there might still be some phonetic and typographical errors. Occasional wrong-word or ``sound-alike substitutions may have occurred due to the inherent limitations of voice recognition software. These areas are purely typographical due to imperfections of the software programs and do not reflect any compromise in the patient's medical care. Please read the chart carefully and recognize, using context, where these substitutions have occurred. Plan discussed with: Patient NYHA Physical activity limitations: NA Date of Service: Feb 10, 2025 Billing Provider: MAIK TREVINO Cardiology Common Codes: [id number] INP/OBS CARE (High) Cardiology Consultation Codes: [id number] CONSULT <45MIN MAIK TREVINO Feb 10, 2025 15:26
[2025-02-10 15:51] LABS: Triglycerides 131.0 mg/dL (< 150)
[2025-02-10 15:52] LABS: Magnesium 2.4 mg/dL (1.6-2.6)
[2025-02-10 15:53] LABS: Cholesterol 92.0 mg/dL (< 200)
[2025-02-10 16:04] LABS: HDL Cholesterol 33.0 mg/dL (40-59)
--- NOTE | 2025-02-10 21:55 | DVHINCON2 ---
Date Seen: Feb 10, 2025 Referring Physician MD Phoebe Reason for Consultation Chest pain History of Present Illness This is a Sierra Leonean-speaking 74-year-old male with a past medical history includes hypertension, dyslipidemia, CVA with left-sided weakness, type 2 diabetes mellitus, and benign prostatic hyperplasia who presents to emergency room with a complaint of chest pain. The patient reports that the chest pain began ap proximately four days prior to emergency room arrival. He reports that symptoms presented while he was doing physical therapy. He states that he began experiencing left-sided chest pain. He describes the pain as unprovoked, intermittent, pressure-like in nature, left-sided with some radiation down his left arm. He denies any associated symptoms. He also denies any aggravating or alleviating factors. Initial twelve lead electrocardiogram seen in patient's hard chart reveals normal sinus rhythm with first-degree conduction delay without any significant ST segment changes. Initial troponin level of 12ng/L. The patient denies any previous cardiac workup.Chest x-ray showed prominent bibasilar bronchovascular markings. Findings may represent infiltrates areas of atelectasis chronic disease. Patient was admitted to the hospital. I am asked to consult on this patient. Past Medical History Past medical history reviewed. No other significant than mentioned above. Past Surgical History Hernia repair Cholecystectomy Family History: Alcoholism G8 FATHER Arthritis G8 MOTHER FH: CAD (coronary artery disease) G8 FATHER FH: CHF (congestive heart failure) G8 FATHER FH: alcoholism FH: obesity G8 FATHER FH: smoking G8 FATHER Glaucoma Hypertension G8 FATHER Allergies: Coded Allergies: NO KNOWN ALLERGIES (Unverified , 06/25/19) Home Meds Reported Medications Linagliptin Base (TRADJENTA) 5 Mg Tab, 1 TAB PO DAILY, #30 TAB 5 Refills 02/09/25 Empagliflozin (Jardiance) 25 Mg Tab, 25 MG PO, TAB 02/09/25 Furosemide (Furosemide) 20 Mg Tab, 1 TAB PO DAILY, #90 TAB 1 Refill 02/09/25 Finasteride (Finasteride) 5 Mg Tab, 5 MG PO, TAB 02/09/25 Glimepiride (Glimepiride) 2 Mg Tab, 2 MG PO, TAB 02/09/25 Aspirin (Aspir-81) 81 Mg Tab, 81 TAB PO DAILY, #90 TAB 1 Refill 02/09/25 Cholecalciferol (VITAMIN D3) 2,000 Unit Tab, 1 TAB PO DAILY, #90 TAB 3 Refills 02/09/25 Atorvastatin Calcium (Lipitor) 20 Mg Tab, 1 TAB PO DAILY, #90 TAB 1 Refill 02/09/25 Gabapentin (Gabapentin) 300 Mg Cap, 300 MG PO, CAP 02/09/25 Amlodipine Besylate (Amlodipine Besylate) 5 Mg Tab, 1 TAB PO DAILY, #30 TAB 5 Refills 02/09/25 Lisinopril (Lisinopril) 40 Mg Tab, 40 MG PO DAILY, TAB 06/26/19 Tamsulosin Hcl (Tamsulosin Hcl) 0.4 Mg Cap, 0.4 MG PO HS, CAP 06/26/19 Discontinued Reported Medications Metformin Hydrochloride (Metformin Hcl) 1,000 Mg Tab, 1000 MG PO BID, TAB 06/26/19 Current Medications Current Medications Medications (Trade) Dose Ordered Sig/Elizabeth Route PRN Reason Start Time Stop Time Status Last Admin Azithromycin 250 ml @ 125 mls/hr DAILY IV 02/10/25 10:00 02/10/25 10:11 Lisinopril (Zestril Tablet) 40 mg DAILY PO 02/10/25 10:00 02/10/25 10:14 Atorvastatin Calcium (Lipitor) 20 mg HS PO 02/09/25 22:00 02/09/25 22:49 Empaglifozin (Jardiance) 25 mg DAILY PO 02/10/25 10:00 02/10/25 10:15 Furosemide (Lasix Tablet) 20 mg DAILY PO 02/10/25 10:00 02/10/25 10:13 Gabapentin (Neurontin Capsule) 300 mg DAILY PO 02/10/25 10:00 02/10/25 10:14 Aspirin 81 mg DAILY PO 02/11/25 10:00 02/10/25 20:41 DC Review of Systems Constitutional: No symptom reported Ears, Nose, & Throat: No symptom reported Eyes: No symptom reported Neurological: No symptoms reported Pulmonary/Respiratory: No symptoms reported Cardiovascular: Chest pain Gastrointestinal: No symptom reported Genitourinary: No symptom reported Musculoskeletal: No symptom reported Skin: No symptom reported Psychiatric: No symptom reported Endocrine: No symptom reported Hematologic/Lymphatic: No symptom reported Vital Signs Vital Signs Date Time Temp Pulse Resp B/P (MAP) Pulse Ox O2 Delivery O2 Flow Rate FiO2 02/10/25 17:00 98.0 65 18 152/59 (90) 96 98.0 02/10/25 08:00 Room Air* 0 21 Physical Exam GENERAL: Alert and oriented x 3. No acute distress. EYES: PERRL, EOMI. Anicteric. HENT: Moist mucous membranes. LUNGS: Clear to auscultation bilaterally. CARDIOVASCULAR: Regular rate and rhythm. ABDOMEN: Soft, nontender and nondistended. EXTREMITIES: No edema. NEUROLOGIC: No focal neurological deficits. SKIN: Warm, dry. Labs/Diagnostic Data Labs Test 02/10/25 17:40 02/10/25 05:54 02/09/25 16:14 02/09/25 15:13 Range/Units POC Glucose 134 H 70-106 mg/dl White Blood Count 4.5 4.4-10.8 10^3/uL Red Blood Count 4.52 4.5-5.90 10^6/uL Hemoglobin 14.7 13.5-17.5 g/dL Hematocrit 42.9 41.0-53.0 % Mean Corpuscular Volume 95.0 80.0-100.0 fL Mean Corpuscular Hemoglobin 32.5 H 28.0-32.0 pg Mean Corpuscular Hemoglobin Concent 34.3 32.0-36.0 g/dL Red Cell Distribution Width 12.8 11.8-14.3 % Platelet Count 107 L 140-450 10^3/uL Mean Platelet Volume 9.5 6.9-10.8 fL Neutrophils (%) (Auto) 61.3 37.0-80.0 % Lymphocytes (%) (Auto) 25.3 10.0-50.0 % Monocytes (%) (Auto) 9.7 0.0-12.0 % Eosinophils (%) (Auto) 3.2 0.0-7.0 % Basophils (%) (Auto) 0.5 0.0-2.0 % Neutrophils # (Auto) 2.8 1.6-8.6 10 ^3/uL Lymphocytes # (Auto) 1.1 0.4-5.4 10 ^3/uL Monocytes # (Auto) 0.4 0-1.3 10 ^3/uL Eosinophils # (Auto) 0.1 0-0.8 10 ^3/uL Basophils # (Auto) 0 0-0.2 10 ^3/uL Nucleated Red Blood Cells 0.1 % Sodium Level 146 H 136-145 mmol/L Potassium Level 4.1 3.5-5.1 mmol/L Chloride Level 109 H 98-107 mmol/L Carbon Dioxide Level 28 20-31 mmol/L Anion Gap 9 5-15 Blood Urea Nitrogen 19 9-23 mg/dL Creatinine 1.29 0.700-1.30 mg/dL Glomerular Filtration Rate Calc 59 >90 mL/min BUN/Creatinine Ratio 14.7 10.0-20.0 Serum Glucose 107 H 74-106 mg/dL Hemoglobin A1c 7.0 H <5.7 % A1C Calcium Level 9.0 8.7-10.4 mg/dL Magnesium Level 2.4 1.6-2.6 mg/dL Triglycerides Level 131 < 150 mg/dL Cholesterol Level 92 < 200 mg/dL LDL Cholesterol 44 < 100 mg/dL HDL Cholesterol 33 L 40-59 mg/dL Thyroid Stimulating Hormone (TSH) 3.35 0.55-4.78 uIU/mL Lactic Acid Level 0.7 0.4-2.0 mmol/L Troponin I High Sensitivity 11 </=54 ng/L Microbiology Date/Time Source Procedure Growth Status 02/09/25 16:14 Blood Blood Culture - Preliminary NO GROWTH AFTER 24 HOURS OF INCUBATION. Resulted Assessment Chest pain, rule out coronary ischemia. Rule out structural heart disease. Hypertension. Dyslipidemia. History of CVA with left-sided residual weakness. Type 2 diabetes mellitus. History of tobacco use. Plan/Recommendation I agree with your ongoing assessment and care of plan. Patient has been seen by Janay Perez NP on my behalf. We have discussed the plan with the patient. Transthoracic echocardiogram to evaluate cardiac function. Chest pain protocol. HEART score: 4 points (moderate score). Single antiplatelet therapy and lipid-lowering agent. Blood pressure control. Nuclear stress test. Close cardiac surveillance. Given patient's clinical presentation and comorbidities, the patient was offered a nuclear stress test. Patient unable to complete treadmill stress test given left-sided residual weakness from previous CVA. We will schedule the patient at soonest availability. Additional plan as per the hospital course. Plan discussed with: Patient NYHA Physical activity limitations: NA Date of Service: Feb 10, 2025 Billing Provider: AISSATOU ORLANDO MD Cardiology Common Codes: [id number] INP/OBS CARE (High) Cardiology Consultation Codes: [id number] CONSULT <45MIN AISSATOU ORLANDO MD Feb 10, 2025 20:45
--- NOTE | 2025-02-10 23:42 | DVHSR ---
APPROVED REPORT EXAM: Two-dimensional and M-mode echocardiogram with Doppler and color Doppler. Blood Pressure: 121/68 mmHg INDICATION Chest Pain RISK FACTORS Height: 5'1", Weight: 164 DIMENSIONS LVDd4.3 (3.8-5.7cm)LA (2D)3.5 (1.9-4.0cm)Aortic Root3.3 (2.0-3.7cm) LVDs2.9 (2.5-4.0cm)LA (MM) (1.9-4.0cm)Aortic Cusp Exc1.8 (1.5-2.0cm) EF (%) 60.0 (55-70%)Rt. Atrium4.0 (1.9-4.0cm)Asc. Aorta cm IVSd1.4 (0.7-1.1cm)RV (D) (1.8-2.4cm) PWd1.0 (0.7-1.1cm) Mitral Valve MitralMitral Stenosis E wave0.50m/sMV Mean GR.mmHg A wave0.82m/sMV Peak GR.mmHg E/A ratio0.62D MVAcm2 DECEL [id number] 1/2 Timems Aortic Valve Aortic ValveAortic Stenosis V11.09m/Yamilex Mean GR.3mmHg V21.25m/Yamilex Peak GR.6mmHg LVOT Diameter2.1 (1.8-2.4cm)Doppler AVA3.02cm2 Pulmonic Valve V21.13m/s Conclusion MILD LVH AND MILD LV DIASTOLIC DYSFUNCTION LV EF IS 65% AND IS NORMAL NORMAL VALVES NO EFFUSION
[2025-02-11] VITALS (9 sets, daily range): BP systolic 129–165; BP diastolic 45–80; PULSE 67–86; RESP 16–19; TEMP 97.1–98.1; O2SAT 93–97
--- NOTE | 2025-02-11 15:12 | DVHPN2 ---
Subjective The patient seen and examined at bedside. No complains today. Reviewed: Care Plan, H&P, Labs, Medications, Previous Orders, Radiology Changes from previous H/P or p: No Changes Objective Vitals Vital Signs Date Time Temp Pulse Resp B/P (MAP) Pulse Ox O2 Delivery O2 Flow Rate FiO2 02/11/25 13:14 96 Room Air* 0 21 02/11/25 13:00 97.1 72 17 165/61 (95) 97.1 Intake/Output Intake and Output 02/11/25 07:00 Intake Total 2120 ml Output Total 1150 ml Balance 970 ml Intake Oral 1870 ml IV Total 250 ml Output Urine Total 1150 ml # Voids 4 # Bowel Movements 2 General Appearance: Alert, Oriented X3, Cooperative, No acute distress HEENT: Atraumatic, PERRLA, EOMI, Mucous membr. moist/pink Neck: Supple Lungs: Clear to auscultation, Normal air movement Cardiovascular: Regular rate, Normal S1, Normal S2, No murmurs, Gallops, Rubs Abdomen: Normal bowel sounds, Soft, No tenderness Neuro: Cranial nerves 3-12 NL Psych/Mental Status: Mental status NL Medications Current Medications Medications Dose Ordered Sig/Elizabeth Route Start Time Stop Time Status Last Admin Dose Admin Azithromycin 250 ml @ 125 mls/hr DAILY IV 02/10/25 10:00 02/11/25 11:01 125 MLS/HR Albuterol 2.5 mg Q6HPRN PRN NEB 02/09/25 16:45 Lisinopril 40 mg DAILY PO 02/10/25 10:00 02/11/25 11:03 40 MG Atorvastatin Calcium 20 mg HS PO 02/09/25 22:00 02/10/25 21:49 20 MG Empaglifozin 25 mg DAILY PO 02/10/25 10:00 02/11/25 11:02 25 MG Tamsulosin HCl 0.4 mg QPM PO 02/09/25 18:00 02/10/25 17:50 0.4 MG Furosemide 20 mg DAILY PO 02/10/25 10:00 02/11/25 11:03 20 MG Gabapentin 300 mg DAILY PO 02/10/25 10:00 02/11/25 11:01 300 MG Diagnostic Test (Pha) 1 strip ACHS 02/09/25 17:00 02/11/25 11:50 1 STRIP Insulin Human Regular ACHS SC 02/09/25 17:00 02/11/25 12:18 4 UNITS Dextrose 50 ml UD PRN IV 02/09/25 16:45 Ondansetron HCl 4 mg Q4HP PRN IV 02/09/25 16:45 Acetaminophen 650 mg Q6HP PRN PO 02/09/25 16:45 Nitroglycerin 0.4 mg Q5MINP PRN SL 02/09/25 16:45 Morphine Sulfate 2 mg Q30M PRN IV 02/09/25 17:45 Laboratory Results Laboratory Tests 02/10/25 05:54 Microbiology Microbiology Date/Time Source Procedure Growth Status 02/09/25 16:14 Blood Blood Culture - Preliminary NO GROWTH AFTER 24 HOURS OF INCUBATION. Resulted Labs and/or images reviewed: Labs reviewed by me Assessment/Plan Assessment/Plan Chest pain Questionable pneumonia Diabetes mellitus Chronic kidney disease CVA with left-sided deficits Plan Continue current management. Cardiology consult Will follow up with echo Continue IV antibiotic Continue with nebs Plan discussed with: Patient Date of Service: Feb 11, 2025 Billing Provider: MARY ANN LAW MD Common Visit Codes: [id number] INP/OBS CARE(HIGH) MARY ANN LAW MD Feb 11, 2025 15:12
[2025-02-12] VITALS (9 sets, daily range): BP systolic 129–147; BP diastolic 70–91; PULSE 60–80; RESP 17–18; TEMP 97.6–98.1; O2SAT 93–97
--- NOTE | 2025-02-12 01:23 | DVHPN2 ---
Progress Note - Dictate Date Seen: Feb 11, 2025 Medical Necessity Reason Pt with a Central, PICC or Fol: No Subjective Patient was seen and evaluated in follow up. Patient complains of chest pain. BS are WNL. Telemetry reviewed. vital signs Vital Sign Date Time Temp Pulse Resp B/P (MAP) Pulse Ox O2 Delivery O2 Flow Rate FiO2 02/11/25 16:53 98.1 67 16 137/45 (75) 96 98.1 02/11/25 13:14 Room Air* 0 21 Total Intake and Output 02/10/25 02/10/25 02/11/25 14:59 22:59 06:59 Intake Total 250 ml 1350 ml 520 ml Output Total 1150 ml Balance 250 ml 1350 ml -630 ml medications Current Medications Medications Dose Ordered Sig/Elizabeth Route Start Time Stop Time Status Last Admin Dose Admin Azithromycin 250 ml @ 125 mls/hr DAILY IV 02/10/25 10:00 02/11/25 11:01 125 MLS/HR Albuterol 2.5 mg Q6HPRN PRN NEB 02/09/25 16:45 Lisinopril 40 mg DAILY PO 02/10/25 10:00 02/11/25 11:03 40 MG Atorvastatin Calcium 20 mg HS PO 02/09/25 22:00 02/10/25 21:49 20 MG Empaglifozin 25 mg DAILY PO 02/10/25 10:00 02/11/25 11:02 25 MG Tamsulosin HCl 0.4 mg QPM PO 02/09/25 18:00 02/11/25 17:47 0.4 MG Furosemide 20 mg DAILY PO 02/10/25 10:00 02/11/25 11:03 20 MG Gabapentin 300 mg DAILY PO 02/10/25 10:00 02/11/25 11:01 300 MG Diagnostic Test (Pha) 1 strip ACHS 02/09/25 17:00 02/11/25 16:23 1 STRIP Insulin Human Regular ACHS SC 02/09/25 17:00 02/11/25 12:18 4 UNITS Dextrose 50 ml UD PRN IV 02/09/25 16:45 Ondansetron HCl 4 mg Q4HP PRN IV 02/09/25 16:45 Acetaminophen 650 mg Q6HP PRN PO 02/09/25 16:45 Nitroglycerin 0.4 mg Q5MINP PRN SL 02/09/25 16:45 Morphine Sulfate 2 mg Q30M PRN IV 02/09/25 17:45 objective GENERAL: Alert and oriented x 3. No acute distress. EYES: PERRL, EOMI. Anicteric. HENT: Moist mucous membranes. LUNGS: Clear to auscultation bilaterally. CARDIOVASCULAR: Regular rate and rhythm. ABDOMEN: Soft, nontender and nondistended. EXTREMITIES: No edema. NEUROLOGIC: No focal neurological deficits. SKIN: Warm, dry. laboratory and microbiology Laboratory Tests 02/10/25 05:54 Test 02/10/25 05:54 Range/Units Serum Glucose 107 H 74-106 mg/dL Problem List Chest pain, rule out coronary ischemia. Rule out structural heart disease. Hypertension. Dyslipidemia. History of CVA with left-sided residual weakness. Type 2 diabetes mellitus. History of tobacco use. Assessment/Plan Continued all current supportive medical care. Aspirin, Lipitor. IV antibiotics as ordered. Diuretics with Lasix. Lisinopril. Additional plan as per the hospital course. Plan discussed with: Patient AISSATOU ORLANDO MD Feb 11, 2025 21:01
--- NOTE | 2025-02-12 13:20 | DVHPN2 ---
Subjective The patient seen and examined at bedside. No complains today. Waiting for stress test. According to rotary derrick operator, will be done on Thursday. Reviewed: Care Plan, H&P, Labs, Medications, Previous Orders, Radiology Changes from previous H/P or p: No Changes Objective Vitals Vital Signs Date Time Temp Pulse Resp B/P (MAP) Pulse Ox O2 Delivery O2 Flow Rate FiO2 02/12/25 12:28 97.8 70 18 131/71 (91) 97 97.8 02/12/25 07:59 Room Air* 0 21 Intake/Output Intake and Output 02/12/25 07:00 Intake Total 1450 ml Output Total 700 ml Balance 750 ml Intake Oral 1200 ml IV Total 250 ml Output Urine Total 700 ml # Voids 4 # Bowel Movements 2 General Appearance: Alert, Oriented X3, Cooperative, No acute distress HEENT: Atraumatic, PERRLA, EOMI, Mucous membr. moist/pink Neck: Supple Lungs: Clear to auscultation, Normal air movement Cardiovascular: Regular rate, Normal S1, Normal S2, No murmurs, Gallops, Rubs Abdomen: Normal bowel sounds, Soft, No tenderness Neuro: Cranial nerves 3-12 NL Psych/Mental Status: Mental status NL Medications Current Medications Medications Dose Ordered Sig/Elizabeth Route Start Time Stop Time Status Last Admin Dose Admin Azithromycin 250 ml @ 125 mls/hr DAILY IV 02/10/25 10:00 02/12/25 09:58 125 MLS/HR Albuterol 2.5 mg Q6HPRN PRN NEB 02/09/25 16:45 Cancel Lisinopril 40 mg DAILY PO 02/10/25 10:00 02/12/25 09:59 40 MG Atorvastatin Calcium 20 mg HS PO 02/09/25 22:00 02/11/25 21:10 20 MG Empaglifozin 25 mg DAILY PO 02/10/25 10:00 02/12/25 09:59 25 MG Tamsulosin HCl 0.4 mg QPM PO 02/09/25 18:00 02/11/25 17:47 0.4 MG Furosemide 20 mg DAILY PO 02/10/25 10:00 02/12/25 09:59 20 MG Gabapentin 300 mg DAILY PO 02/10/25 10:00 02/12/25 09:59 300 MG Diagnostic Test (Pha) 1 strip ACHS 02/09/25 17:00 02/12/25 11:30 1 STRIP Insulin Human Regular ACHS SC 02/09/25 17:00 02/11/25 21:09 3 UNITS Dextrose 50 ml UD PRN IV 02/09/25 16:45 Ondansetron HCl 4 mg Q4HP PRN IV 02/09/25 16:45 Acetaminophen 650 mg Q6HP PRN PO 02/09/25 16:45 Nitroglycerin 0.4 mg Q5MINP PRN SL 02/09/25 16:45 Morphine Sulfate 2 mg Q30M PRN IV 02/09/25 17:45 Laboratory Results Laboratory Tests 02/10/25 05:54 Microbiology Microbiology Date/Time Source Procedure Growth Status 02/09/25 16:14 Blood Blood Culture - Preliminary NO GROWTH AFTER 48 HOURS OF INCUBATION. Resulted Labs and/or images reviewed: Labs reviewed by me Assessment/Plan Assessment/Plan Chest pain Questionable pneumonia Diabetes mellitus Acute kidney injury improved CVA with left-sided deficits Plan Continue current management. Cardiology consult done, waiting for stress test to be done. Will follow up with echo Continue IV antibiotic Continue with nebs Plan discussed with: Patient Date of Service: Feb 12, 2025 Billing Provider: MARY ANN LAW MD Common Visit Codes: [id number] INP/OBS CARE(HIGH) MARY ANN LAW MD Feb 12, 2025 13:20
--- NOTE | 2025-02-12 20:00 | DVHPN2 ---
Progress Note - Dictate Date Seen: Feb 12, 2025 Medical Necessity Reason Pt with a Central, PICC or Fol: No Subjective Patient was seen and evaluated in follow up. No overnight events. Patient denies any complaints. Patient is refusing insulin. BS remain WNL. Telemetry reviewed. vital signs Vital Sign Date Time Temp Pulse Resp B/P (MAP) Pulse Ox O2 Delivery O2 Flow Rate FiO2 02/12/25 12:28 97.8 70 18 131/71 (91) 97 97.8 02/12/25 07:59 Room Air* 0 21 Total Intake and Output 02/11/25 02/11/25 02/12/25 15:00 23:00 07:00 Intake Total 250 ml 400 ml 800 ml Output Total 700 ml Balance 250 ml 400 ml 100 ml medications Current Medications Medications Dose Ordered Sig/Elizabeth Route Start Time Stop Time Status Last Admin Dose Admin Azithromycin 250 ml @ 125 mls/hr DAILY IV 02/10/25 10:00 02/12/25 09:58 125 MLS/HR Albuterol 2.5 mg Q6HPRN PRN NEB 02/09/25 16:45 Cancel Lisinopril 40 mg DAILY PO 02/10/25 10:00 02/12/25 09:59 40 MG Atorvastatin Calcium 20 mg HS PO 02/09/25 22:00 02/11/25 21:10 20 MG Empaglifozin 25 mg DAILY PO 02/10/25 10:00 02/12/25 09:59 25 MG Tamsulosin HCl 0.4 mg QPM PO 02/09/25 18:00 02/11/25 17:47 0.4 MG Furosemide 20 mg DAILY PO 02/10/25 10:00 02/12/25 09:59 20 MG Gabapentin 300 mg DAILY PO 02/10/25 10:00 02/12/25 09:59 300 MG Diagnostic Test (Pha) 1 strip ACHS 02/09/25 17:00 02/12/25 11:30 1 STRIP Insulin Human Regular ACHS SC 02/09/25 17:00 02/11/25 21:09 3 UNITS Dextrose 50 ml UD PRN IV 02/09/25 16:45 Ondansetron HCl 4 mg Q4HP PRN IV 02/09/25 16:45 Acetaminophen 650 mg Q6HP PRN PO 02/09/25 16:45 Nitroglycerin 0.4 mg Q5MINP PRN SL 02/09/25 16:45 Morphine Sulfate 2 mg Q30M PRN IV 02/09/25 17:45 objective GENERAL: Alert and oriented x 3. No acute distress. EYES: PERRL, EOMI. Anicteric. HENT: Moist mucous membranes. LUNGS: Clear to auscultation bilaterally. CARDIOVASCULAR: Regular rate and rhythm. ABDOMEN: Soft, nontender and nondistended. EXTREMITIES: No edema. NEUROLOGIC: No focal neurological deficits. SKIN: Warm, dry. laboratory and microbiology Laboratory Tests 02/10/25 05:54 Test 02/10/25 05:54 Range/Units Serum Glucose 107 H 74-106 mg/dL Problem List Chest pain, rule out coronary ischemia. Rule out structural heart disease. Hypertension. Dyslipidemia. History of CVA with left-sided residual weakness. Type 2 diabetes mellitus. History of tobacco use. Assessment/Plan Continued all current supportive medical care. IV antibiotics as ordered. Diuretics with Lasix. Lisinopril. Additional plan as per the hospital course. Plan discussed with: Patient AISSATOU ORLANDO MD Feb 12, 2025 14:16
[2025-02-13] VITALS (7 sets, daily range): BP systolic 117–146; BP diastolic 51–76; PULSE 61–98; RESP 16–20; TEMP 36.9; O2SAT 93–98
[2025-02-13 05:56] LABS: Hematocrit 40.2 % (41.0-53.0); Hemoglobin 13.8 g/dL (13.5-17.5); Mean Corpuscular Hemoglobin 32.5 pg (28.0-32.0); Mean Corpuscular Volume 94.5 fL (80.0-100.0); Nucleated Red Blood Cells % 0.2 %
[2025-02-13 06:04] LABS: Potassium 4.0 mmol/L (3.5-5.1); Sodium 143 mmol/L (136-145)
[2025-02-13 06:05] LABS: Anion Gap 7 (5-15); Calcium 8.8 mg/dL (8.7-10.4); Carbon Dioxide 26 mmol/L (20-31); Chloride 110 mmol/L (98-107)
[2025-02-13 06:10] LABS: BUN/Creatinine Ratio 17.4 (10.0-20.0); Blood Urea Nitrogen 21 mg/dL (9-23)
[2025-02-13 06:22] LABS: Glucose 120 mg/dL (74-106)
[2025-02-13] MEDS: REGADENOSON 0.4 MG/5 ML SYRG IV ONE ×2 (10:05→10:06)
[2025-02-13] MEDS ORDERED: AZIT-74 PO (12:10)
--- NOTE | 2025-02-13 12:12 | DVHDS2 ---
Discharge Summary Date of Admission Feb 09, 2025 at 16:42 Date of Discharge: Feb 13, 2025 Admitting Diagnosis Chest pain Questionable pneumonia Diabetes mellitus Acute kidney injury improved CVA with left-sided deficits Labs/Diagnostic Data: Laboratory Results Test 02/13/25 05:45 02/13/25 05:22 02/10/25 05:54 02/09/25 16:14 POC Glucose 126 mg/dl (70-106) White Blood Count 5.2 10^3/uL (4.4-10.8) Red Blood Count 4.26 10^6/uL (4.5-5.90) Hemoglobin 13.8 g/dL (13.5-17.5) Hematocrit 40.2 % (41.0-53.0) Mean Corpuscular Volume 94.5 fL (80.0-100.0) Mean Corpuscular Hemoglobin 32.5 pg (28.0-32.0) Mean Corpuscular Hemoglobin Concent 34.4 g/dL (32.0-36.0) Red Cell Distribution Width 12.6 % (11.8-14.3) Platelet Count 115 10^3/uL (140-450) Mean Platelet Volume 8.9 fL (6.9-10.8) Neutrophils (%) (Auto) 59.3 % (37.0-80.0) Lymphocytes (%) (Auto) 28.4 % (10.0-50.0) Monocytes (%) (Auto) 9.3 % (0.0-12.0) Eosinophils (%) (Auto) 2.5 % (0.0-7.0) Basophils (%) (Auto) 0.5 % (0.0-2.0) Neutrophils # (Auto) 3.1 10 ^3/uL (1.6-8.6) Lymphocytes # (Auto) 1.5 10 ^3/uL (0.4-5.4) Monocytes # (Auto) 0.5 10 ^3/uL (0-1.3) Eosinophils # (Auto) 0.1 10 ^3/uL (0-0.8) Basophils # (Auto) 0 10 ^3/uL (0-0.2) Nucleated Red Blood Cells 0.2 % Sodium Level 143 mmol/L (136-145) Potassium Level 4.0 mmol/L (3.5-5.1) Chloride Level 110 mmol/L (98-107) Carbon Dioxide Level 26 mmol/L (20-31) Anion Gap 7 (5-15) Blood Urea Nitrogen 21 mg/dL (9-23) Creatinine 1.21 mg/dL (0.700-1.30) Glomerular Filtration Rate Calc 63 mL/min (>90) BUN/Creatinine Ratio 17.4 (10.0-20.0) Serum Glucose 120 mg/dL (74-106) Calcium Level 8.8 mg/dL (8.7-10.4) Hemoglobin A1c 7.0 % A1C (<5.7) Magnesium Level 2.4 mg/dL (1.6-2.6) Triglycerides Level 131 mg/dL (< 150) Cholesterol Level 92 mg/dL (< 200) LDL Cholesterol 44 mg/dL (< 100) HDL Cholesterol 33 mg/dL (40-59) Thyroid Stimulating Hormone (TSH) 3.35 uIU/mL (0.55-4.78) Lactic Acid Level 0.7 mmol/L (0.4-2.0) Test 02/09/25 15:13 Troponin I High Sensitivity 11 ng/L (</=54) Other Laboratory Tests 02/13/25 05:22 Brief Hx & Hospital Course: This is a 74 years old male come to emergency department because of chest pain. The patient had a left-sided pressure like chest pain associated with shortness for breath. Chest pain is not radiating. Network Programmer's see the patient. Troponin level and EKG showed no acute change. Echo showed mild LVH but normal ejection fraction at 65%. No further cardiac workup. The patient also found to have pneumonia and was treated with Zithromax IV. The patient also was put on IV Lasix. The patient improved. Shortness for breath improved. Patient going to be discharged home today. Activity as tolerated. Diet per home diet. Physical exam: HEENT: Normocephalic atraumatic pupils equal react to light and accommodation. Extraocular muscles intact, conjunctiva pink, oropharynx moist, no thrush, no exudate. Lymphatic: No lymphadenopathy Cardiovascular exam: S1, S2 was heard. No murmurs, rubs, gallops Lung: Clear on auscultation bilaterally, no wheeze, rale, rhonchi. GI: Abdominal soft, nondistended, nontenderness, positive bowel sounds. Extremity: No crepitus, cyanosis, edema. Pedal pulses present bilateral. Full range of motion. Skin: Normal turgor, no rash. Psych: Alert, oriented x3. Neurology: No focal deficits, cranial nerve II to XII grossly intact. This medical document was created using an electronic medical record system with [employer] computerized dictation system. Although this document has been carefully reviewed, there may still be some phonetic and typographical errors. These areas are purely typographical due to imperfections of the software programs, and do not reflect any compromise in the patient's medical care. Condition at Discharge: Stable Final Diagnosis/Problems List Chest pain possible secondary to pneumonia Pneumonia secondary to Gram-positive/Gram-negative bacteria Diabetes mellitus Acute kidney injury improved CVA with left-sided deficits Discharge Disposition: Home Discharge Instruct/Medications Diet: Cardiac 2g Na,low cholest Activity: No Restrictions, As Tolerated Follow Up/Referral: pcp 1-2 weeks Medications: see med list Scheduled Amlodipine Besylate (Amlodipine Besylate), 1 TAB PO DAILY, (Reported) Aspirin (Aspir-81), 81 TAB PO DAILY, (Reported) Atorvastatin Calcium (Lipitor), 1 TAB PO DAILY, (Reported) Azithromycin (Zithromax), 250 MG PO DAILY Cholecalciferol (Vitamin D3), 1 TAB PO DAILY, (Reported) Furosemide (Furosemide), 1 TAB PO DAILY, (Reported) Linagliptin Base (Tradjenta), 1 TAB PO DAILY, (Reported) Lisinopril (Lisinopril), 40 MG PO DAILY, (Reported) Tamsulosin Hcl (Tamsulosin Hcl), 0.4 MG PO HS, (Reported) Miscellaneous Medications Empagliflozin (Jardiance), 25 MG PO, (Reported) Finasteride (Finasteride), 5 MG PO, (Reported) Gabapentin (Gabapentin), 300 MG PO, (Reported) Glimepiride (Glimepiride), 2 MG PO, (Reported) Discontinued Medications Metformin Hydrochloride (Metformin Hcl), 1,000 MG PO BID, (Reported) Discharge Statement: "Patient was advised to return to the ER or call 911 if any headaches, dizziness, shortness of breath, chest pain, abdominal pain, bleeding, fevers, or worsening of medical condition. Patient was counseled about treatment plan, medications, possible side effects, patientverbalized understanding. All questions were answered to the best of my ability. This discharge took greater then 30 minutes in planning, reviewing documentation, counseling the patient, and discussing with other team members." ASSESSMENT ASSESSMENT Assessment CHest pain PNA Date of Service: Feb 13, 2025 Billing Provider: MARY ANN LAW MD Common Visit Codes: [id number] DISCH DAY >30min MARY ANN LAW MD Feb 13, 2025 12:12
--- NOTE | 2025-02-13 16:42 | DVHSR ---
APPROVED REPORT Exam: Nuclear Stress Test Indication: Chest pain BMI: 0 Stress Test Details Stress Test: Pharmacologic stress testing performed using 0.4 mg of regadenoson per 5 mL given IV ov er 10 seconds. HR Resting HR: 83 bpmMax Heart Rate (APMHR): 147.916333 bpm Max HR Achieved: 105 bpmTarget HR (85% APMHR): 124.832537 bpm % of APMHR: 71.43 Recovery HR: 90 bpm BP Resting BP: 157/78 mmHg Recovery BP: 156/68 mmHg ECG Resting ECG: Sinus Rhythm Clinical Reason for Termination: Completed protocol Nurse Comments Recieved pt. from [facility]. A/Ox4 on RA. Connected to cardiac surgeon, VS stable. PIV flushes well. Re viewed POC. Pt. verbalized understanding of procedure including risks and side effects, agrees for st ress testing. Lexiscan stress test performed per protocol. Housekeep tech administered Cardiolite. Pt. tolerated well . Pt. stable, no change on exam. VS returned to baseline. Transferred to [facility] via gurney with [employer] . Stress ECG Conclusion lvef 72% normal perfusion scan no major ischemia PACs and PVCs on stress ecg portion NM EXAM: Myocardial Perfusion REST/STRESS Imaging Protocol: Rest Tc-99m/Stress Tc-99m 1 day Resting Data Rest SPECT myocardial perfusion imaging was performed in supine position 60 minutes following the int ravenous injection of 9.5 mCi of Tc-99m Sestamibi. Time of rest injection: 07:35 Date: 02/13/2025 Time of rest imagin:35 Date: 02/13/2025 Administration Route: IV Administration Site: Left Arm Pharmacologic Stress Pharmacologic stress test was performed by injecting Regadenoson 0.4 mg IV push followed by the intra venous injection of 30.0 mCi of Tc-99m Sestamibi. Time of stress injection: 10:30 Date: 02/13/2025 Time of stress imagin:30 Date: 02/13/2025 Administration Route: IV Administration Site: Left Arm Gated Stress SPECT was performed 60 minutes after stress injection. The images were gated to evaluate regional wall motion and calculate left ventricular ejection fracti on. Stress only was performed in the Supine position. Nuclear Conclusion Nuclear Findings: negative for ischemia lvef 72% normal perfusion scan no major ischemia PACs and PVCs on stress ecg portion
--- NOTE | 2025-02-13 23:23 | DVHPN2 ---
Progress Note - Dictate Date Seen: Feb 13, 2025 Medical Necessity Reason Pt with a Central, PICC or Fol: No Subjective Patient was seen and evaluated in follow up. Echo shows LV EF of 65%. Patient denies any cardiac symptoms. Patient is cardiac stable for discharge. Telemetry reviewed. vital signs Vital Sign Date Time Temp Pulse Resp B/P (MAP) Pulse Ox O2 Delivery O2 Flow Rate FiO2 02/13/25 16:59 98.2 69 20 117/56 (76) 94 98.2 02/13/25 08:00 Room Air* 0 21 Total Intake and Output 02/12/25 02/12/25 02/13/25 15:00 23:00 07:00 Intake Total 250 ml 670 ml 400 ml Output Total 850 ml 700 ml Balance 250 ml -180 ml -300 ml medications Current Medications Medications Dose Ordered Sig/Elizabeth Route Start Time Stop Time Status Last Admin Dose Admin Albuterol 2.5 mg Q6HPRN PRN NEB 02/09/25 16:45 Cancel objective GENERAL: Alert and oriented x 3. No acute distress. EYES: PERRL, EOMI. Anicteric. HENT: Moist mucous membranes. LUNGS: Clear to auscultation bilaterally. CARDIOVASCULAR: Regular rate and rhythm. ABDOMEN: Soft, nontender and nondistended. EXTREMITIES: No edema. NEUROLOGIC: No focal neurological deficits. SKIN: Warm, dry. laboratory and microbiology Laboratory Tests 02/13/25 05:22 Test 02/13/25 05:22 Range/Units Serum Glucose 120 H 74-106 mg/dL Problem List Chest pain, rule out coronary ischemia. Rule out structural heart disease. Hypertension. Dyslipidemia. History of CVA with left-sided residual weakness. Type 2 diabetes mellitus. History of tobacco use. Assessment/Plan Continued all current supportive medical care. IV antibiotics as ordered. Diuretics with Lasix. Lisinopril. Additional plan as per the hospital course. Plan discussed with: Patient AISSATOU ORLANDO MD Feb 13, 2025 23:23
--- NOTE | 2025-02-15 08:27 | DVHPN2 ---
Reviewed: Care Plan, H&P, Labs, Medications, Previous Orders, Radiology Changes from previous H/P or p: No Changes General: Per HPI Objective Vitals Vital Signs Date Time Temp Pulse Resp B/P (MAP) Pulse Ox O2 Delivery O2 Flow Rate FiO2 02/13/25 16:59 98.2 69 20 117/56 (76) 94 98.2 02/13/25 08:00 Room Air* 0 21 General Appearance: Alert, Oriented X3, Cooperative, No acute distress HEENT: Atraumatic, PERRLA, EOMI, Mucous membr. moist/pink Neck: Supple Lungs: Clear to auscultation, Normal air movement Cardiovascular: Regular rate, Normal S1, Normal S2, No murmurs, Gallops, Rubs Abdomen: Normal bowel sounds, Soft, No tenderness Neuro: Cranial nerves 3-12 NL Psych/Mental Status: Mental status NL Medications Current Medications Medications Dose Ordered Sig/Elizabeth Route Start Time Stop Time Status Last Admin Dose Admin Albuterol 2.5 mg Q6HPRN PRN NEB 02/09/25 16:45 Cancel Laboratory Results Laboratory Tests 02/13/25 05:22 Microbiology Microbiology Date/Time Source Procedure Growth Status 02/09/25 16:14 Blood Blood Culture - Final NO GROWTH AFTER 5 DAYS OF INCUBATION. Complete Assessment/Plan Assessment/Plan Chest pain suspected pneumonia Diabetes mellitus Chronic kidney disease CVA with left-sided deficits being worked up for chest pain ckd is stable Plan discussed with: Patient Date of Service: Feb 10, 2025 Billing Provider: IRAM LAND DO Common Visit Codes: [id number] INP/OBS CARE(HIGH) IRAM LAND DO Feb 15, 2025 08:27
--- NOTE | 2025-02-15 13:13 | ECG ---
[facility] Test Date: 2025-02-09 Test Time: 12:35:54 Pat Name: ANGELA CARBAJAL Department: ED Room: [facility] Gender: M Development Coordinator: jennifer : 1950 Requested By: IMAN ROMAN Order Number: [id number] Reading MD: Bob Daniels Measurements Intervals [place] Rate: 78 P: 79 IA: 228 QRS: 64 QRSD: 74 T: -7 QT: 360 QTc: 411 Interpretive Statements Sinus rhythm Prolonged IA interval Nonspecific T abnormalities, inferior leads Baseline wander in lead(s) I,II,aVR Electronically Signed On 02-18-2025 18:33:34 PDT by Bob Daniels Please click the below link to view image of tracing.
--- NOTE | 2025-02-16 21:25 | DVHOP ---
DATE OF SURGERY: 02/13/2025 This is a report of myocardial perfusion scan. The patient underwent the EKG stress test, which is normal. Occasional PVC was noted. The patient received intravenous Cardiolite and stress images was done. Prior to that, we have also obtained stress and rest images and both have been compared. There is a normal perfusion of the anterior wall, lateral wall, inferoposterior wall and septum. Left ventricular ejection fraction is 72% and normal. CONCLUSION: * This is a normal myocardial perfusion scan. * Normal ejection fraction of 72%. The study is normal. Camille Arellano MD MP/GUZMAN TID: [id number] RECEIPT: [id number]
== END 2025-02-13 18:04 | disposition home or self-care (01) | DRG 178 ==
LOC: ER 11:15 → OVERFLOW 16:42 → TELE-WESTW 19:25
PROVIDERS: ADMIT Internal Medicine; ATTEND Internal Medicine
DX: J15.69 Pneumonia due to other Gram-negative bacteria (principal); I69.354 Hemiplegia and hemiparesis following cerebral infarction affecting left non-dominant side; N17.9 Acute kidney failure, unspecified; E11.22 Type 2 diabetes mellitus with diabetic chronic kidney disease; N18.9 Chronic kidney disease, unspecified; E78.5 Hyperlipidemia, unspecified; J15.9 Unspecified bacterial pneumonia; D69.6 Thrombocytopenia, unspecified; I12.9 Hypertensive chronic kidney disease with stage 1 through stage 4 chronic kidney disease, or unspecified chronic kidney disease; Z53.20 Procedure and treatment not carried out because of patient's decision for unspecified reasons; Z82.49 Family history of ischemic heart disease and other diseases of the circulatory system; Z87.891 Personal history of nicotine dependence; Z79.899 Other long term (current) drug therapy; Z81.1 Family history of alcohol abuse and dependence; Z79.82 Long term (current) use of aspirin
CPT/HCPCS: 36415; 71045; 78452; 80048; 80061; 82962; 83036; 83605; 83735; 84443; 84484; 85025; 87040; 93005; 93017; 93306; 96365; 99291; G0378; J0692; J1815